=== PATIENT | female | born 1975 | race Caucasian/White ===

== ENCOUNTER 2017-12-31 10:06 | Day surgery (SDC) | payer OTHER ==
[2017-12-31 11:38] VITALS: BMI 35.7
[2017-12-31] MEDS ORDERED: Propofol 10 mg/ml Inj (20 ML) ONE ×2 (13:09→13:25)
[2017-12-31] MEDS ORDERED: Lidocaine Hydrochloride 5 ML INJ ONE (13:09)
[2017-12-31 13:50] VITALS: TEMP 97.5
[2017-12-31 14:10] VITALS: O2SAT 98
[2017-12-31 14:37] VITALS: BP 135/87; PULSE 107; RESP 13
== END 2017-12-31 14:32 | disposition home or self-care (01) ==
LOC: C.ENDO 10:06
PROVIDERS: ATTEND Internal Medicine
DX: K21.9 Gastro-esophageal reflux disease without esophagitis (principal); K44.9 Diaphragmatic hernia without obstruction or gangrene; K29.70 Gastritis, unspecified, without bleeding
CPT/HCPCS: 43239; 82948; 84703; 88305; J2704